=== PATIENT | male | born 1965 | race Caucasian/White ===

== ENCOUNTER 2019-08-18 05:30 | Emergency (ER) | payer BC ==
[2019-08-18 05:40] VITALS: BP 153/84
--- NOTE | 2019-08-18 05:43 | ED Physician Documentation ---
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 It was not an avulsion rather it is a laceration. It happened about 10 hours prior to arrival here reports is not up-to-date on his tetanus.He is right-hand dominant) Review of Systems Ten Systems: 10 systems reviewed and negative Constitutional: reports: Reviewed and negative Eyes: reports: Reviewed and negative Ears: reports: Reviewed and negative Nose: reports: Reviewed and negative Throat: reports: Reviewed and negative Cardiac: reports: Reviewed and negative Respiratory: reports: Reviewed and negative GI: reports: Reviewed and negative : reports: Reviewed and negative Skin: reports: Other (Finger laceration) Musculoskeletal: reports: Reviewed and negative Neurologic: reports: Reviewed and negative Psychiatric: reports: Reviewed and negative Endocrine: reports: Reviewed and negative Immunocompromised: reports: Reviewed and negative PD PAST MEDICAL HISTORY - Present Medications Home Medications: Ambulatory Orders Medication Instructions Recorded Confirmed No Known Home Medications 08/18/19 08/18/19 - Allergies Allergies/Adverse Reactions: Allergies Allergy/AdvReac Type Severity Reaction Status Date / Time ciprofloxacin [From Cipro] Allergy Rash Verified 08/18/19 05:40 PD ED PE NORMAL - Vitals Vital signs reviewed: Yes - General General: Alert and oriented X 3, No acute distress - HEENT HEENT: PERRL - Neck Neck: Supple, no meningeal sign - Cardiac Cardiac: RRR, No murmur - Respiratory Respiratory: Clear bilaterally - Abdomen Abdomen: Normal bowel sounds, Soft, Non tender, Non distended - Derm Derm: Warm and dry - Extremities Extremities: Other (On the fingertip of the left middle finger there is a less than 1 cm laceration its not through and through there is no avulsion there however there is a laceration it is very close to the distal nail. The nail beds intact compartments are soft sensations intact to light touch.) - Neuro Neuro: Alert and oriented X 3 - Psych Psych: Normal mood, Normal affect PD ED PE EXPANDED - Extremities SCOTTIE UE/Hands Visual: 1 - laceration Results - Vitals Vitals: Vital Signs - 24 hr 08/18/19 05:34 Temperature 36.2 C L Heart Rate 76 Respiratory 14 Rate Blood Pressure 153/84 H O2 Saturation 95 Oxygen O2 Source Room air Procedures - Laceration (location) Finger left Distal Length in cm: 1 Wound type: Linear Neurovascular status: Sensory intact, Motor intact, Vascular intact Wound Preparation: Irrigated copiously NS, Other (Wound was irrigated copiously with no further approximately 10 minutes and all bleeding was controlled no foreign bodies were identified there is not an avulsion. Is a less than 1cm fingertip laceration) Skin layer closure: Dermabond Other: Patient tolerated well, No complications, Neurovascular intact, Dressing applied, Tetanus booster given Complexity: Simple PD MEDICAL DECISION MAKING - ED course Complexity details: considered differential (Fingertip laceration, no avulsion. Wound was thoroughly irrigated wound was well approximated and Dermabond applied simple dressing applied he should follow-up with his physician this week for a wound recheck.) Departure - Departure Disposition: 01 Home, Self Care Clinical Impression: Finger laceration Qualifiers: Encounter type: initial encounter Finger: middle finger Damage to nail status: unspecified Foreign body presence: without foreign body Laterality: left Qualified Code(s): S61.213A - Laceration without foreign body of left middle finger without damage to nail, initial encounter Condition: Stable Instructions: ED Laceration Ext Skin Glue Follow-Up: your, doctor [Other] - As Needed Comments: Labs apply topical antibiotic such as Neosporin multiple times daily.Follow-up with your physician this week for a wound recheck.
[2019-08-18] MEDS ORDERED: TETANUS/DIPHTHERIA/PERTUSSIS 0.5 ML SYRINGE IM ONE (05:51)
[2019-08-18] MEDS ORDERED: BACITRACIN ZINC OINT 1 PACKET TOP STA (05:51)
== END 2019-08-18 06:31 | disposition home or self-care (01) ==
LOC: ED 05:30
DX: S61.213A Laceration without foreign body of left middle finger without damage to nail, initial encounter (principal); W26.0XXA Contact with knife, initial encounter; Y93.G1 Activity, food preparation and clean up; Y92.000 Kitchen of unspecified non-institutional (private) residence as the place of occurrence of the external cause
CPT/HCPCS: 12001; 90471; 90715; 99283; 99284; A9270